=== PATIENT | female | born 1985 | race African-American/Black ===

== ENCOUNTER 2017-03-12 22:21 | Emergency (ER) | payer OTHER ==
[~2017-03-12] VITALS: Ht 170.2 cm; Wt 144.7 kg
[~2017-03-12 22:21] MED LIST: FEOSOL45 MG PO; PROVERA10 M1 PO
[2017-03-12 22:28] VITALS: BP 128/74
--- NOTE | 2017-03-12 22:34 | NUR ---
PT TAKEN TO BED 8
--- NOTE | 2017-03-12 22:37 | NUR ---
31 Y/O F W/C/O DIZZINESS, SEVERE MIGRAINE HEADACHE X 2 DAYS. PT STATES SHE THOUGHT IT WAS HER GLASSES D/T SHE RECENTLY CHANGED GLASSES. NO S/S OF DISTRESS NOTED. ER MD MADE AWARE. HX OF ANEMIA WITH BLOOD TRANSFUSION
--- NOTE | 2017-03-12 22:40 | NUR ---
Dr. Seo evaluating patient at bedside.
[2017-03-12] MEDS ORDERED: NACL 0.9% 1,000 ML IV ONE (22:54)
[2017-03-12] MEDS ORDERED: KETOROLAC 30 MG/ML VIAL IVP ONE (22:55)
[2017-03-12] MEDS ORDERED: METOCLOPRAMIDE 10 MG/2 ML INJ VIAL IVP ONE (22:55)
[2017-03-12] MEDS ORDERED: diphenhydrAMINE 50 MG/ML VIAL IVP ONE (22:55)
--- NOTE | 2017-03-12 23:49 | NUR ---
RELAYED TO DR. COOK RESULT OF URINE DIPSTICK AND URINE
[2017-03-13 00:32] VITALS: BP 120/70
--- NOTE | 2017-03-13 00:32 | NUR ---
Patient discharged with v/s stable. Written and verbal after care instructions given and explained. Patient alert, oriented and verbalized understanding of instructions. Wheel Chair Assisted with by EMT TO CAR. PT ACCOMPANIED BY MOTHER. All questions addressed prior to discharge. ID band removed. Patient advised to follow up with PMD TOMORROW OR RETURN TO ER IF CONDITION WORSENS. Rx of FIORICET given. Patient educated on indication of medication including possible reaction and side effects. Opportunity to ask questions provided and answered.
== END 2017-03-13 00:32 | disposition home or self-care (01) ==
LOC: MED 22:21
DX: R51 Headache (principal); J45.909 Unspecified asthma, uncomplicated
CPT/HCPCS: 36415; 80053; 81002; 81025; 85025; 96361; 96374; 96375; 99284; J1200; J1885; J2765; J7030

== ENCOUNTER 2018-10-13 11:17 | Emergency (ER) | payer OTHER ==
[~2018-10-13] VITALS: Ht 172.7 cm; Wt 131.1 kg
[~2018-10-13 11:17] MED LIST changes: -FEOSOL45 MG PO; +MEDR10TA PO; -PROVERA10 M1 PO; +[UNRECOGNIZED DRUG - CODE] PO
[2018-10-13 11:26] VITALS: BP 147/87
[2018-10-13 11:54] VITALS: BP 147/87
== END 2018-10-13 11:54 | disposition home or self-care (01) ==
LOC: MED 11:17
DX: G43.909 Migraine, unspecified, not intractable, without status migrainosus (principal); L03.032 Cellulitis of left toe; Z79.899 Other long term (current) drug therapy
CPT/HCPCS: 99283

== ENCOUNTER 2019-01-17 15:34 | Emergency (ER) | payer OTHER ==
[~2019-01-17] VITALS: Ht 172.7 cm; Wt 142.0 kg
[2019-01-17 15:40] VITALS: BP 122/67
--- NOTE | 2019-01-17 17:00 | NUR ---
PATIENT AMBULATED TO ER CHAIR A.
--- NOTE | 2019-01-17 17:05 | NUR ---
PT IS A 33 Y/O FEMALE WHO PRESENTS TO THE ED C/O L KNEE PAIN. PT STATES THAT SHE TRIPPED OFF STAIRS BACK ON L KNEE IN 07/2018 AND STILL REPORTS PAIN. CMS INTACT, NO OBVIOUS TRAUMA/DEFORMITY. PT REPORTS 07/21 ACHING L KNEE PAIN THAT DOES NOT RADIATE. PT DENIES CP, SOB, N/V/D. PT AWAKE AND ALERT, RR EVEN/UNLABORED. PT REPOSITIONED FOR COMFORT, BED IN LOWEST POSITION. ER E[facility] NOTIFIED. WILL CONTINUE TO MONITOR MEDHX: NONE RX: NAPROXEN FOR MIGRAINES
[2019-01-17 18:00] VITALS: BP 128/75
--- NOTE | 2019-01-17 18:00 | NUR ---
Patient discharged with v/s stable. Written and verbal after care instructions given and explained. Patient alert, oriented and verbalized understanding of instructions. Ambulatory with steady gait. All questions addressed prior to discharge. ID band removed. Patient advised to follow up with PMD. Rx of IBUPROFEN 600MG given. Patient educated on indication of medication including possible reaction and side effects. Opportunity to ask questions provided and answered.
== END 2019-01-17 18:00 | disposition home or self-care (01) ==
LOC: MED 15:34
DX: G89.29 Other chronic pain (principal); M25.562 Pain in left knee; Z79.899 Other long term (current) drug therapy
CPT/HCPCS: 99283

== ENCOUNTER 2019-02-23 08:36 | Emergency (ER) | payer OTHER ==
[~2019-02-23] VITALS: Ht 172.7 cm; Wt 144.4 kg
[2019-02-23 08:42] VITALS: BP 153/91
--- NOTE | 2019-02-23 09:00 | NUR ---
PT AMBULATED TO ER BED 11
--- NOTE | 2019-02-23 09:01 | NUR ---
33 y female bib mother c/o nausea, dizziness, blurry vision, left sided of head pain x 3 months. pain 10/10 severe, throbbing. neuro intact. gcs 15. pupils jennifer. vss at this time. pt is alert and oriented. bed is down, locked, bed rail x 1, ermd to see pt. med hx:migraine headaches med: ibuprofen
--- NOTE | 2019-02-23 09:03 | NUR ---
pt amb to restroom for urine sample
--- NOTE | 2019-02-23 09:10 | NUR ---
dr lopez at bedside for pt evaluation
[2019-02-23] MEDS ORDERED: NACL 0.9% 1,000 ML IV ONE (09:13)
[2019-02-23] MEDS ORDERED: diphenhydrAMINE 50 MG/ML VIAL IVP ONE (09:15)
[2019-02-23] MEDS ORDERED: METOCLOPRAMIDE 10 MG/2 ML INJ VIAL IVP ONE (09:15)
[2019-02-23] MEDS ORDERED: KETOROLAC 30 MG/ML VIAL IVP ONE (09:15)
--- NOTE | 2019-02-23 09:48 | NUR ---
pt tolerated medications well. pain 6/10 at this time.
[2019-02-23 10:01] VITALS: BP 151/86
== END 2019-02-23 10:01 | disposition home or self-care (01) ==
LOC: MED 08:36
DX: G43.909 Migraine, unspecified, not intractable, without status migrainosus (principal); Z79.899 Other long term (current) drug therapy
CPT/HCPCS: 81002; 81025; 96374; 96375; 99283; J1200; J1885; J2765; J7030

== ENCOUNTER 2023-02-05 11:21 | Emergency (ER) | payer OTHER ==
[~2023-02-05] VITALS: Ht 170.2 cm; Wt 137.9 kg
[2023-02-05 11:31] VITALS: BP 166/105
--- NOTE | 2023-02-05 11:42 | NUR ---
AMB. TO CHAIR B WITH NO DIFFICULTY
[2023-02-05] MEDS ORDERED: HYDROcodone/APAP 5/325 MG 1 TAB TAB PO ONE (11:45)
[2023-02-05] MEDS ORDERED: ACETAMINOPHEN 325 MG TAB PO SCH (11:50)
--- NOTE | 2023-02-05 12:00 | NUR ---
PT. BACK FROM XRAY
[2023-02-05] MEDS ORDERED: LID5T TP (12:30)
[2023-02-05] MEDS ORDERED: ACET-8905 PO (12:30)
--- NOTE | 2023-02-05 12:47 | NUR ---
Patient discharged with v/s stable. Written and verbal after care instructions given and explained to parent/guardian. Parent/Guardian verbalized understanding. . All questions addressed prior to discharge. Advised to follow up with PMD. PT. STABLE FOR D/C. AWAKE AND ALERT. NO DISTRESS. AMBU. WITH NO DIFFICULTY
== END 2023-02-05 12:46 | disposition home or self-care (01) ==
LOC: MED 11:21
DX: S46.811A Strain of other muscles, fascia and tendons at shoulder and upper arm level, right arm, initial encounter (principal); J45.909 Unspecified asthma, uncomplicated; Z79.899 Other long term (current) drug therapy; Z79.891 Long term (current) use of opiate analgesic; X50.0XXA Overexertion from strenuous movement or load, initial encounter; Y92.89 Other specified places as the place of occurrence of the external cause; Y93.89 Activity, other specified; Y99.8 Other external cause status
CPT/HCPCS: 73080; 99283

== ENCOUNTER 2023-05-11 12:10 | Emergency (ER) | payer OTHER ==
[~2023-05-11] VITALS: Ht 170.2 cm; Wt 138.8 kg
[~2023-05-11 12:10] MED LIST changes: +ACET-8905 PO; +LID5T TP
[2023-05-11 12:34] VITALS: BP 146/95; PULSE 71; RESP 20; TEMP 97.9
[2023-05-11 12:58] VITALS: BP 146/95; PULSE 71; RESP 20; TEMP 97.9
--- NOTE | 2023-05-11 12:59 | NUR ---
37 Y/O F PATIENT PRESENTS TO ED WITH BACK PAIN. PT STATES LOWER BACK PAIN RADIATES TO LEFT SIDE OF ABD. PAIN IS PROVOKED WITH SITTING. PT STATES PT STATES IT HAS BEEN GOING ON FOR A MONTH. PT HAS A FALL IN DECEMBER AND ULTRA SOUND FINDINGS OF LYMPHOMA ON RIGHT SIDE. PT STATES SHE HAD NAUSEA THIS MORNING. DENIES V/D; SKIN IS PINK/WARM/DRY; AAOX4 WITH EVEN AND STEADY GAIT; LUNGS CLEAR BL; HR EVEN AND REGULAR; PT DENIES ANY FEVER, CP, SOB, OR COUGH AT THIS TIME; PATIENT STATES PAIN OF 8/10 AT THIS TIME; VSS; PATIENT POSITIONED FOR COMFORT; HOB ELEVATED;CALL LIGHT WITH IN REACH BEDRAILS UP X2; BED DOWN. ER MADE AWARE OF PT STATUS. PMHX 2020 PARTIAL HYSTERECTOMY NO MENSTURAL PERIOD LUPUS PRONE DVT PE BLOOD THINNERS
[2023-05-11 13:07] VITALS: O2SAT 95
[2023-05-11] MEDS ORDERED: ACETAMINOPHEN EXTRA STRENGTH 500 MG TAB PO ONE (13:10)
[2023-05-11] MEDS ORDERED: LIDOCAINE MPF 1% 10 MG/ML VIAL INJ ONE (13:10)
--- NOTE | 2023-05-11 14:27 | NUR ---
The patient's care was reviewed and supervised by MABEL TURNER RN.
--- NOTE | 2023-05-11 14:30 | NUR ---
PT STATS TYLENOL TOOK EFFECT PAIN HAS REDUCE TO A 3 AND IS READY TO GO HOME
--- NOTE | 2023-05-11 14:57 | NUR ---
Patient discharged with v/s stable. Written and verbal after care instructions given and explained. Patient verbalized understanding. Ambulatory with steady gait. All questions addressed prior to discharge. Advised to follow up with PMD.
== END 2023-05-11 14:27 | disposition home or self-care (01) ==
LOC: MED 12:10
DX: M62.830 Muscle spasm of back (principal); Z90.710 Acquired absence of both cervix and uterus; Z86.718 Personal history of other venous thrombosis and embolism; Z79.899 Other long term (current) drug therapy
CPT/HCPCS: 20552; 81002; 99284; J2001

== ENCOUNTER 2023-11-21 15:03 | Emergency (ER) | payer OTHER ==
[~2023-11-21] VITALS: Ht 170.2 cm; Wt 133.8 kg
[2023-11-21 15:26] VITALS: BP 135/80; PULSE 82; RESP 18; TEMP 98; O2SAT 100
[2023-11-21] MEDS ORDERED: ACET-10509 PO (18:35)
[2023-11-21 18:40] VITALS: BP 135/80; PULSE 82; RESP 18; TEMP 98; O2SAT 100
== END 2023-11-21 18:40 | disposition home or self-care (01) ==
LOC: MED 15:03
DX: M25.461 Effusion, right knee (principal); J45.909 Unspecified asthma, uncomplicated; Z79.899 Other long term (current) drug therapy
CPT/HCPCS: 73562; 81025; 93971; 99284; Q0092

== ENCOUNTER 2024-03-15 08:54 | Emergency (ER) | payer OTHER ==
[~2024-03-15] VITALS: Ht 170.2 cm; Wt 132.2 kg
[~2024-03-15 08:54] MED LIST changes: +ACET-10509 PO
[2024-03-15 09:08] VITALS: BP 137/84; PULSE 74; RESP 17; TEMP 98; O2SAT 98
== END 2024-03-15 12:17 | disposition home or self-care (01) ==
LOC: MED 08:54
DX: M79.662 Pain in left lower leg (principal); J45.909 Unspecified asthma, uncomplicated; Z98.890 Other specified postprocedural states; Z79.1 Long term (current) use of non-steroidal anti-inflammatories (NSAID); Z79.899 Other long term (current) drug therapy
CPT/HCPCS: 93971; 99284; Q0092